=== PATIENT | male | born 1960 | race Hispanic/Latino ===

== ENCOUNTER 2022-05-03 15:16 | Emergency (ER) | payer OTHER ==
[2022-05-03 16:19] LABS: ALT (SGPT) 23 U/L (8-55); AST (SGOT) 31 U/L (5-34); Albumin 2.4 g/dL (3.4-4.8); Alkaline Phosphatase 89 U/L (40-110); Anion Gap 12 mmol/L (10-20); BUN (Urea Nitrogen) 46 mg/dL (8.4-25.7); Bilirubin, Total 1.1 mg/dL (0.2-1.2); Calc. Creatinine Clearance 0 mL/min (70-130); Calcium 7.9 mg/dL (7.8-10.44); Carbon Dioxide 20 mmol/L (23-31); Chloride 107 mmol/L (98-107); Estimated GFR 35; Globulin 2.8 g/dL (2.4-3.5); Glucose 244 mg/dL (80-115); Potassium 3.5 mmol/L (3.5-5.1); Protein, Total 5.2 g/dL (5.8-8.1); Sodium 135 mmol/L (136-145)
[2022-05-03 16:26] LABS: #Monocytes 0.3 10x3/uL (0.0-1.1); #Neutrophils 2.6 10x3/uL (1.5-8.4); %Basophils 0.6 % (0.0-2.0); %Eosinophils 1.2 % (0.0-6.0); Hemoglobin 6.9 g/dL (13.5-17.5); Mean Corpuscular HGB CONC 33.2 g/dL (32.0-36.0); Mean Corpuscular Hemoglobin 27.7 pg (27.0-33.0); Mean Corpuscular Volume 83.5 fl (81.2-95.1); Mean Platelet Volume 11.6 fl (7.4-10.4); Platelet Count 55 10x3/uL (150-450); RBC Distribution Width 15.3 % (11.5-14.5); Red Blood Cell (RBC) Count 2.49 10x6/uL (4.32-5.72); White Blood Cell (WBC) Count 3.4 10x3/uL (3.5-10.5)
[2022-05-03] MEDS ORDERED: Cefepime 2 GM VIAL ONE (16:26)
[2022-05-03 16:40] LABS: SARS-CoV-2 NAA Rapid Test Not Detected (NotDetected)
[2022-05-03] MEDS ORDERED: VANCOMYCIN 1.75 GM/350 ML BAG 1.75 GM in Premix Bag 1 BAG IVPB SCH (16:45)
[2022-05-03 18:15] LABS: INR-International Normal Ratio 1.2; PTT 43.3 sec (22.0-33.0); Prothrombin Time 12.9 sec (9.5-12.1)
[2022-05-03 20:55] LABS: Bilirubin Neg (Negative); Blood, Urine Negative (Negative); Clarity Clear (Clear); Glucose, Urine (Dipstick) Normal (Negative); Ketone, Urine Negative (Negative); Leukocyte Negative (Negative); Nitrite Negative (Negative); Protein, Urine (Dipstick) Negative (Neg-Trace); Specific Gravity, Urine 1.015 (1.002-1.036)
== END 2022-05-03 21:03 | disposition short-term general hospital (02) ==
LOC: CSHERS 15:16
DX: L03.115 Cellulitis of right lower limb (principal); E11.9 Type 2 diabetes mellitus without complications; E03.9 Hypothyroidism, unspecified; I11.0 Hypertensive heart disease with heart failure; I50.9 Heart failure, unspecified; Z20.822 Contact with and (suspected) exposure to COVID-19
CPT/HCPCS: 36415; 80053; 81003; 82550; 83605; 85025; 85610; 85730; 86850; 86870; 86900; 86901; 87040; 87070; 87077; 87186; 87205; 96374; 96375; J0692; J3370; U0002

== ENCOUNTER 2022-06-13 20:45 | Inpatient (IN) | payer OTHER ==
[2022-06-13 21:40] LABS: #Eosinphils 0.1 10x3/uL (0.0-0.5); #Monocytes 0.2 10x3/uL (0.0-1.1); #Neutrophils 1.8 10x3/uL (1.5-8.4); %Basophils 0.8 % (0.0-2.0); %Lymphocytes 24.1 % (18.0-47.0); %Monocytes 5.6 % (0.0-10.0); %Neutrophils 66.1 % (40.0-75.0); Mean Corpuscular HGB CONC 30.3 g/dL (32.0-36.0); Mean Corpuscular Hemoglobin 26.8 pg (27.0-33.0); Mean Corpuscular Volume 88.4 fl (81.2-95.1); Mean Platelet Volume 10.7 fl (7.4-10.4); Platelet Count 44 10x3/uL (150-450); Red Blood Cell (RBC) Count 2.24 10x6/uL (4.32-5.72); White Blood Cell (WBC) Count 2.7 10x3/uL (3.5-10.5)
[2022-06-13 21:48] LABS: ALT (SGPT) 34 U/L (8-55); AST (SGOT) 55 U/L (5-34); Albumin 2.4 g/dL (3.4-4.8); Alkaline Phosphatase 108 U/L (40-110); Anion Gap 9 mmol/L (10-20); BUN (Urea Nitrogen) 26 mg/dL (8.4-25.7); Bilirubin, Total 1.4 mg/dL (0.2-1.2); Calc. Creatinine Clearance 0 mL/min (70-130); Carbon Dioxide 26 mmol/L (23-31); Chloride 108 mmol/L (98-107); Estimated GFR 54; Globulin 3.7 g/dL (2.4-3.5); Glucose 132 mg/dL (80-115); Potassium 4.7 mmol/L (3.5-5.1); Protein, Total 6.1 g/dL (5.8-8.1); Sodium 138 mmol/L (136-145)
[2022-06-13 23:28] LABS: SARS-CoV-2 NAA Rapid Test Not Detected (NotDetected)
[2022-06-14] MEDS ORDERED: Senokot S 8.6-50 MG TAB PO PRN (01:41)
[2022-06-14] MEDS ORDERED: Ondansetron PF 4 MG/2 ML Vial IVP PRN (01:41)
[2022-06-14] MEDS ORDERED: Ondansetron ODT 4 MG TAB PO PRN (01:41)
[2022-06-14] MEDS ORDERED: Bisacodyl 5 MG TAB PO PRN (01:41)
[2022-06-14] MEDS ORDERED: Calcium Carbonate 500 MG ChewTAB PO PRN (01:41)
[2022-06-14] MEDS ORDERED: Dextrose 50% Abboject 50 ML SYRINGE SLOW IVP PRN (01:55)
[2022-06-14] MEDS ORDERED: Dextrose 5% in Water 1,000 ML IV PRN (01:55)
[2022-06-14] MEDS ORDERED: HumaLOG 300 UNITS/3 ML VIAL SC PRN ×2 (01:55)
[2022-06-14] MEDS ORDERED: Furosemide 40 MG/4 ML VIAL IVP SCH (02:00)
[2022-06-14] MEDS ORDERED: Albumin 25% 25 GM/100 ML BOT IVPB SCH (02:00)
[2022-06-14] MEDS: Lactated Ringer's 500 ML IV SCH ×3 (02:12→22:04)
[2022-06-14] MEDS ORDERED: Electrolyte Replacement Protocol FS SCH (02:15)
[2022-06-14] MEDS ORDERED: Furosemide 40 MG/4 ML VIAL SLOW IVP SCH (02:15)
[2022-06-14] MEDS: Acetaminophen 325 MG TAB PO PRN (02:26)
[2022-06-14 02:57] LABS: D-Dimer Test 3.89 mg/L FEU (0.19-0.50); INR-International Normal Ratio 1.2; PTT 33.6 sec (22.0-33.0); Prothrombin Time 13.3 sec (9.5-12.1)
[2022-06-14 03:04] LABS: Bilirubin, Direct 0.6 mg/dL (0.1-0.3); Iron 30 ug/dL (65-175); Iron Binding Capacity, Total 328 mcg/dL (261-462); Magnesium 1.7 mg/dL (1.6-2.6)
[2022-06-14] MEDS ORDERED: Magnesium 2 GM/50 ML(in water) 2 GM in Premix Bag 1 BAG IVPB SCH (04:00)
[2022-06-14 04:06] LABS: Hemoglobin 6.1 g/dL (13.5-17.5); Mean Corpuscular HGB CONC 31.1 g/dL (32.0-36.0); Mean Corpuscular Hemoglobin 27.6 pg (27.0-33.0); Mean Corpuscular Volume 88.7 fl (81.2-95.1); Mean Platelet Volume 11.9 fl (7.4-10.4); Platelet Count 45 10x3/uL (150-450); RBC Distribution Width 17.1 % (11.5-14.5); Red Blood Cell (RBC) Count 2.21 10x6/uL (4.32-5.72); White Blood Cell (WBC) Count 2.3 10x3/uL (3.5-10.5)
[2022-06-14 04:18] LABS: MDiff Complete? YES
[2022-06-14 04:37] LABS: Band 7 % (5-11); Eosinophils 1 % (0-10); Lymphocytes 23 % (21-51); Monocytes 11 % (0-10); Neutrophil 58 % (42-75)
[2022-06-14 04:39] LABS: Ovalocytes MODERATE= 6-15 cells (100X) (0-1/hpf); Platelet Morphology Comment Appears Decreased; Polychromasia SLIGHT = 2-3 cells (100X) (0-2/hpf); Reflex for Review?? YES
[2022-06-14] MEDS: Ferrous Sulfate 325 MG TAB PO SCH (08:26)
[2022-06-14] MEDS: Folic Acid 1 MG TAB PO SCH (08:27)
[2022-06-14] MEDS: Pantoprazole 40 MG VIAL IVP SCH ×2 (08:28→21:31)
[2022-06-14] MEDS: Folic Acid/Vit B Comp W-C PO SCH (08:28)
[2022-06-14 12:23] LABS: Hemoglobin 5.4 g/dL (13.5-17.5); Platelet Count 40 10x3/uL (150-450)
[2022-06-14 12:36] LABS: Anion Gap 9 mmol/L (10-20); BUN (Urea Nitrogen) 29 mg/dL (8.4-25.7); Calc. Creatinine Clearance 68 mL/min (70-130); Calcium 7.8 mg/dL (7.8-10.44); Carbon Dioxide 22 mmol/L (23-31); Chloride 112 mmol/L (98-107); Estimated GFR 65; Glucose 177 mg/dL (80-115); Potassium 4.6 mmol/L (3.5-5.1); Sodium 138 mmol/L (136-145)
[2022-06-14 12:37] LABS: Hemoglobin A1c 5.3 % (4.0-6.0)
[2022-06-14 13:51] LABS: Bilirubin Neg (Negative); Blood, Urine Negative (Negative); Clarity Clear (Clear); Glucose, Urine (Dipstick) Normal (Negative); Ketone, Urine Negative (Negative); Leukocyte Negative (Negative); Nitrite Negative (Negative); Protein, Urine (Dipstick) Negative (Neg-Trace); Urobilinogen Normal mg/dL (Less than 2)
[2022-06-14 14:02] LABS: Bacteria/HPF None Seen HPF (None Seen); RBC/HPF 0-3 HPF (0-3); Squamous Epithelial 0-3 HPF (0-3); WBC/HPF 0-3 HPF (0-3)
[2022-06-14 17:07] LABS: Hemoglobin 6.5 g/dL (13.5-17.5)
[2022-06-14 17:18] LABS: Glucose 191 mg/dL (80-115)
[2022-06-14 17:39] LABS: Hemoglobin 6.5 g/dL (13.5-17.5); Platelet Count 50 10x3/uL (150-450)
[2022-06-15] MEDS: Lactated Ringer's 500 ML IV SCH ×2 (09:56→23:55)
[2022-06-15] MEDS: Folic Acid/Vit B Comp W-C PO SCH (09:58)
[2022-06-15] MEDS: Ferrous Sulfate 325 MG TAB PO SCH (09:58)
[2022-06-15] MEDS: Folic Acid 1 MG TAB PO SCH (09:58)
[2022-06-15] MEDS: Pantoprazole 40 MG VIAL IVP SCH ×2 (09:59→23:55)
[2022-06-15] MEDS ORDERED: PROPOFOL 20 ML ONE (16:13)
[2022-06-15] MEDS ORDERED: Succinylcholine 200 MG/10 ml SYRINGE FS ONE ×3 (16:14→16:17)
[2022-06-15] MEDS ORDERED: Lidocaine 1% PF 5 ML VIAL ONE (16:36)
[2022-06-15] MEDS ORDERED: Ondansetron PF 4 MG/2 ML Vial ONE (16:36)
[2022-06-15] MEDS ORDERED: Octreotide Acetate 1,250 MCG in Sodium Chloride 0.9% 250 ML 250 ML IVPB SCH (16:45)
[2022-06-15] MEDS: Acetaminophen 325 MG TAB PO PRN (17:29)
[2022-06-15] MEDS ORDERED: Iron, Sodium Ferric Gluconate 250 MG in Sodium Chloride 0.9% 250 ML 250 ML IVPB SCH (18:30)
[2022-06-16] MEDS: Lactated Ringer's 500 ML IV SCH ×2 (04:22→16:33)
[2022-06-16 05:30] LABS: Anion Gap 8 mmol/L (10-20); BUN (Urea Nitrogen) 42 mg/dL (8.4-25.7); Calc. Creatinine Clearance 56 mL/min (70-130); Carbon Dioxide 21 mmol/L (23-31); Chloride 112 mmol/L (98-107); Estimated GFR 52; Glucose 145 mg/dL (80-115); Potassium 4.3 mmol/L (3.5-5.1); Sodium 137 mmol/L (136-145)
[2022-06-16 05:43] LABS: #Eosinphils 0.1 10x3/uL (0.0-0.5); #Monocytes 0.1 10x3/uL (0.0-1.1); #Neutrophils 2.2 10x3/uL (1.5-8.4); %Basophils 0.3 % (0.0-2.0); %Eosinophils 1.7 % (0.0-6.0); %Lymphocytes 17.2 % (18.0-47.0); %Monocytes 4.8 % (0.0-10.0); Hemoglobin 5.9 g/dL (13.5-17.5); Mean Corpuscular HGB CONC 30.1 g/dL (32.0-36.0); Mean Corpuscular Hemoglobin 27.2 pg (27.0-33.0); Mean Corpuscular Volume 90.3 fl (81.2-95.1); Mean Platelet Volume 11.5 fl (7.4-10.4); Platelet Count 45 10x3/uL (150-450); RBC Distribution Width 17.3 % (11.5-14.5); Red Blood Cell (RBC) Count 2.17 10x6/uL (4.32-5.72); White Blood Cell (WBC) Count 2.9 10x3/uL (3.5-10.5)
[2022-06-16 08:28] LABS: Ferritin 510.26 ng/mL (22-322)
[2022-06-16] MEDS ORDERED: Nadolol 40 MG TAB PO SCH (09:00)
[2022-06-16] MEDS: Folic Acid/Vit B Comp W-C PO SCH (10:16)
[2022-06-16] MEDS: Folic Acid 1 MG TAB PO SCH (10:16)
[2022-06-16] MEDS: Pantoprazole 40 MG VIAL IVP SCH (10:16)
[2022-06-16 16:31] LABS: Hemoglobin 7.2 g/dL (13.5-17.5)
[2022-06-16 17:41] VITALS: BP 124/60; TEMP 98.2
[2022-06-17] MEDS: Pantoprazole 40 MG VIAL IVP SCH (04:01)
== END 2022-06-16 19:15 | disposition short-term general hospital (02) | DRG 809 ==
LOC: CSHERS 20:45 → CSHTELE 06-14 01:43
PROVIDERS: ADMIT Family Medicine; ATTEND Student in an Organized Health Care Education/Training Program
PROC: 30233N1 Transfusion of Nonautologous Red Blood Cells into Peripheral Vein, Percutaneous Approach (ICD-10-PCS; 2022-06-14)
PROC: 0DJ08ZZ Inspection of Upper Intestinal Tract, Via Natural or Artificial Opening Endoscopic (ICD-10-PCS; principal; 2022-06-15)
DX: D61.818 Other pancytopenia (principal); I85.10 Secondary esophageal varices without bleeding; K76.6 Portal hypertension; L03.115 Cellulitis of right lower limb; N17.9 Acute kidney failure, unspecified; D64.9 Anemia, unspecified; D69.6 Thrombocytopenia, unspecified; K31.89 Other diseases of stomach and duodenum; E03.9 Hypothyroidism, unspecified; Z20.822 Contact with and (suspected) exposure to COVID-19; B18.2 Chronic viral hepatitis C; K74.60 Unspecified cirrhosis of liver; I50.9 Heart failure, unspecified; Z79.890 Hormone replacement therapy; Z79.4 Long term (current) use of insulin; Z79.899 Other long term (current) drug therapy; E11.22 Type 2 diabetes mellitus with diabetic chronic kidney disease; N18.9 Chronic kidney disease, unspecified
CPT/HCPCS: 36415; 36416; 36430; 76705; 80048; 80053; 81001; 82105; 82248; 82607; 82728; 83010; 83036; 83540; 83550; 83615; 83735; 83880; 84443; 84484; 85007; 85014; 85018; 85025; 85027; 85046; 85049; 85060; 85379; 85384; 85610; 85730; 86850; 86860; 86870; 86880; 86900; 86901; 86922; 86978; 99285; C9113; J1815; J2354; J2405; J2704; J2916; J3475; J7050; J7120; P9016; P9047; U0002